=== PATIENT | female | born 1995 | race Caucasian/White ===

== ENCOUNTER 2021-11-15 20:06 | Emergency (ER) | payer BC ==
--- NOTE | 2021-11-15 20:16 | NUR ---
Per file clerk, pt LWBS.
[2021-11-15] MEDS ORDERED: ONDA-8 TL (20:45)
[2021-11-15] MEDS ORDERED: NAPR-690 PO (20:45)
== END 2021-11-15 20:16 | disposition left against medical advice (07) ==
LOC: SED 20:06
DX: H57.9 Unspecified disorder of eye and adnexa (principal); Z53.21 Procedure and treatment not carried out due to patient leaving prior to being seen by health care provider